=== PATIENT | female | born 1955 | race Caucasian/White ===

== ENCOUNTER 2024-12-02 13:24 | Emergency (ER) | payer MEDICARE ==
[~2024-12-02] VITALS: Ht 162.6 cm; Wt 86.0 kg
[~2024-12-02 13:24] MED LIST: ADVAIR DISK1 INH; FENTANYL50 MCG/HR TD; LEVOTHYROXIN50 MCG PO; PREVACID30 M2 PO; SENNA-TABS8.6 MG PO; SIMVASTATIN20 MG PO; ZOFRAN ODT4 MG PO
[2024-12-02 13:41] VITALS: BP 166/81
[2024-12-02] MEDS ORDERED: PERCOCET 5/325M1 TAB PO (13:56)
[2024-12-02] MEDS ORDERED: BACTRIM DS1 TAB PO (13:57)
[2024-12-02 14:32] VITALS: BP 166/81
== END 2024-12-02 14:33 | disposition home or self-care (01) ==
LOC: ED 13:24
DX: L02.213 Cutaneous abscess of chest wall (principal)